=== PATIENT | female | born 1950 | race Caucasian/White ===

== ENCOUNTER 2016-07-27 16:25 | Emergency (ER) | payer OTHER ==
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
--- NOTE | 2016-07-27 19:20 | ED ORDER SUMMARY ---
..... Patient: BECK DYKES OrderSheet [facility] VisitID: [id number] [place] [address] 66y, F Registration Date/Time: 07/27/2016 ORDER SHEET Weight: 83.9 kg (stated) Allergies: Adderall XR, Augmentin, Bactroban, Concerta, Gabapentin, Lexapro, morphine, Opana, Prozac, Seroquel, Serzone GENERAL ORDERS: CBC w Diff Urgent (17:07/27/2016 Charlie Robles) (Ack 17:13 Thaddeus) (19:15 KWilliams R.N.) CMP Urgent (17:07/27/2016 Charlie Robles) (Ack 17:13 Thaddeus) (19:15 KWilliams R.N.) UA-Culture if indicated Urgent (17:07/27/2016 Charlie Robles) (Ack 17:13 Thaddeus) (19:15 KWilliams R.N.) Urine Drug Screen Urgent (17:07/27/2016 Charlie Robles) (Ack 17:13 Thaddeus) (19:15 KWilliams R.N.) Ethyl Alcohol Urgent (17:07/27/2016 Charlie Robles) (Ack 17:13 Thaddeus) (19:15 KWilliams R.N.) MEDICATION ORDERS: IV FLUIDS: ORDER SHEET NOTES: [Electronically signed by Anthony Arboleda Dr. (19:26 07/27/2016)] [Electronically signed by Lily Long (20:07 07/27/2016)] [Electronically locked/signed by Lily Long (20:07/27/2016)]
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
--- NOTE | 2016-07-27 19:20 | ED ORDER SUMMARY ---
..... Patient: BECK DYKES OrderSheet [facility] VisitID: [id number] [place] [address] 66y, F Registration Date/Time: 07/27/2016 ORDER SHEET Weight: 83.9 kg (stated) Allergies: Adderall XR, Augmentin, Bactroban, Concerta, Gabapentin, Lexapro, morphine, Opana, Prozac, Seroquel, Serzone GENERAL ORDERS: CBC w Diff Urgent (17:07/27/2016 Charlie Robles) (Ack 17:13 Thaddeus) (19:15 KWilliams R.N.) CMP Urgent (17:07/27/2016 Charlie Robles) (Ack 17:13 Thaddeus) (19:15 KWilliams R.N.) UA-Culture if indicated Urgent (17:07/27/2016 Charlie Robles) (Ack 17:13 Thaddeus) (19:15 KWilliams R.N.) Urine Drug Screen Urgent (17:07/27/2016 Charlie Robles) (Ack 17:13 Thaddeus) (19:15 KWilliams R.N.) Ethyl Alcohol Urgent (17:07/27/2016 Charlie Robles) (Ack 17:13 Thaddeus) (19:15 KWilliams R.N.) MEDICATION ORDERS: IV FLUIDS: ORDER SHEET NOTES: [Electronically signed by Anthony Arboleda Dr. (19:26 07/27/2016)] [Electronically signed by Lily Long (20:07 07/27/2016)] [Electronically locked/signed by Lily Long (20:07/27/2016)]
--- NOTE | 2016-07-27 20:07 | ED MAR SUMMARY ---
..... Medication Administration Record [facility] [address] [place] [address] Patient: BECK DYKES Visit ID: [id number] 66y, F Weight: 83.9 kg Height/Length: 67 in BMI: 29 ALLERGIES: Adderall XR, Augmentin, Bactroban, Concerta, Gabapentin, Lexapro, morphine, Opana, Prozac, Seroquel, Serzone
--- NOTE | 2016-07-27 20:07 | ED MAR SUMMARY ---
..... Medication Administration Record [facility] [address] [place] [address] Patient: BECK DYKES Visit ID: [id number] 66y, F Weight: 83.9 kg Height/Length: 67 in BMI: 29 ALLERGIES: Adderall XR, Augmentin, Bactroban, Concerta, Gabapentin, Lexapro, morphine, Opana, Prozac, Seroquel, Serzone
--- NOTE | 2016-07-27 20:07 | ED MED RECONCILIATION SUMMARY ---
Patient: BECK DYKES Medication Reconciliation Report [facility] VisitID: [id number] [address] [place] [address] 66y, F Registration Date/Time: 07/27/2016 Weight: 83.9 kg Height/Length: 67 in. BMI: 29.0 ALLERGIES: Adderall XR, Augmentin, Bactroban, Concerta, Gabapentin, Lexapro, morphine, Opana, Prozac, Seroquel, Serzone The patient's Home Medications are listed below: CONTINUE TAKING THE FOLLOWING MEDICATIONS: Albuterol Sulfate Inhalation Neurontin Oral Statin Symbicort Inhalation (80-4.5 mcg/act) 2 sprays , 2 x daily Ventolin HFA Inhalation 2 puffs ZyrTEC Allergy Oral The source(s) of the original Home Medication information: patient The following Medications were given to the patient in the Emergency Department: None. The following Medications were prescribed to the patient: None.
--- NOTE | 2016-07-27 20:07 | ED DISCHARGE INSTRUCTIONS ---
Patient: BECK DYKES General Instructions [facility] VisitID: [id number] [place] [address] 66y, F Registration Date/Time: 07/27/2016 Meniere's disease- chronic, right and left ear. INSTRUCTIONS Your Current Medications: CONTINUE TAKING THE FOLLOWING MEDICATIONS: Albuterol Sulfate Inhalation. Neurontin Oral. Statin*. Symbicort Inhalation : Aerosol 80-4.5 mcg/act, 2 sprays 2 x daily. Ventolin HFA Inhalation : 2 puffs, prn. ZyrTEC Allergy Oral. Follow-up: Follow up with your doctor in about four days. Call for an appointment. Screening today revealed the patient's blood pressure to be in the normal range. ADDITIONAL INFORMATION Meniere's Disease The "inner ear" is located inside the brain. It is the balance center of your body. Meniere's Disease is a chronic recurring condition of the inner ear causing a sense of fullness or pressure in the ear, episodes of vertigo , ringing in the ear ("tinnitus") and gradual hearing loss in one or both ears. VERTIGO is a false feeling of motion (as if you or the room is spinning). A vertigo attack may cause extreme nausea, vomiting and heavy sweating. Severe vertigo causes a loss of balance and may result in falling. During an attack of vertigo, head movement and body position changes will worsen symptoms. The vertigo spells may occur weeks, months or years apart. Each episode of vertigo may last minutes, hours or days. The symptoms are due to increased amount of fluid in the inner ear canals but the exact cause of this disease is not known. In almost half the cases another family member has the disease. So, there may be a genetic tendency. Home Care: If symptoms are severe, rest quietly in bed. Change positions slowly. There is usually one position that will feel best, such as lying on one side or lying on your back with your head slightly raised on pillows. Reduce your salt intake. Excess salt in the diet causes fluid retention and can make this condition worse. Do not drive or work with dangerous machinery for one week after symptoms disappear. Symptoms may return suddenly. Take medicine as prescribed to relieve your symptoms. Unless another medicine was prescribed for nausea, vomiting and vertigo, you may use [id number] motion sickness pills, such as meclizine (Bonine, Bonamine, Antivert and other brand names). Get Prompt Medical Attention if any of the following occur: Worsening of symptoms Fever of 100.4F (38C) or higher, or as directed by your healthcare provider Repeated vomiting not relieved by medicine prescribed Increased weakness or fainting Headache or unusual drowsiness Difficulty with speech or movement You have been given the following additional information: Meniere's Disease (Electronically signed by Anthony Arboleda Dr. 07/27/2016 19:26)
--- NOTE | 2016-07-27 20:07 | ED MED RECONCILIATION SUMMARY ---
Patient: BECK DYKES Medication Reconciliation Report [facility] VisitID: [id number] [address] [place] [address] 66y, F Registration Date/Time: 07/27/2016 Weight: 83.9 kg Height/Length: 67 in. BMI: 29.0 ALLERGIES: Adderall XR, Augmentin, Bactroban, Concerta, Gabapentin, Lexapro, morphine, Opana, Prozac, Seroquel, Serzone The patient's Home Medications are listed below: CONTINUE TAKING THE FOLLOWING MEDICATIONS: Albuterol Sulfate Inhalation Neurontin Oral Statin Symbicort Inhalation (80-4.5 mcg/act) 2 sprays , 2 x daily Ventolin HFA Inhalation 2 puffs ZyrTEC Allergy Oral The source(s) of the original Home Medication information: patient The following Medications were given to the patient in the Emergency Department: None. The following Medications were prescribed to the patient: None.
--- NOTE | 2016-07-27 20:07 | ED DISCHARGE INSTRUCTIONS ---
Patient: BECK DYKES General Instructions [facility] VisitID: [id number] [place] [address] 66y, F Registration Date/Time: 07/27/2016 Meniere's disease- chronic, right and left ear. INSTRUCTIONS Your Current Medications: CONTINUE TAKING THE FOLLOWING MEDICATIONS: Albuterol Sulfate Inhalation. Neurontin Oral. Statin*. Symbicort Inhalation : Aerosol 80-4.5 mcg/act, 2 sprays 2 x daily. Ventolin HFA Inhalation : 2 puffs, prn. ZyrTEC Allergy Oral. Follow-up: Follow up with your doctor in about four days. Call for an appointment. Screening today revealed the patient's blood pressure to be in the normal range. ADDITIONAL INFORMATION Meniere's Disease The "inner ear" is located inside the brain. It is the balance center of your body. Meniere's Disease is a chronic recurring condition of the inner ear causing a sense of fullness or pressure in the ear, episodes of vertigo , ringing in the ear ("tinnitus") and gradual hearing loss in one or both ears. VERTIGO is a false feeling of motion (as if you or the room is spinning). A vertigo attack may cause extreme nausea, vomiting and heavy sweating. Severe vertigo causes a loss of balance and may result in falling. During an attack of vertigo, head movement and body position changes will worsen symptoms. The vertigo spells may occur weeks, months or years apart. Each episode of vertigo may last minutes, hours or days. The symptoms are due to increased amount of fluid in the inner ear canals but the exact cause of this disease is not known. In almost half the cases another family member has the disease. So, there may be a genetic tendency. Home Care: If symptoms are severe, rest quietly in bed. Change positions slowly. There is usually one position that will feel best, such as lying on one side or lying on your back with your head slightly raised on pillows. Reduce your salt intake. Excess salt in the diet causes fluid retention and can make this condition worse. Do not drive or work with dangerous machinery for one week after symptoms disappear. Symptoms may return suddenly. Take medicine as prescribed to relieve your symptoms. Unless another medicine was prescribed for nausea, vomiting and vertigo, you may use [id number] motion sickness pills, such as meclizine (Bonine, Bonamine, Antivert and other brand names). Get Prompt Medical Attention if any of the following occur: Worsening of symptoms Fever of 100.4F (38C) or higher, or as directed by your healthcare provider Repeated vomiting not relieved by medicine prescribed Increased weakness or fainting Headache or unusual drowsiness Difficulty with speech or movement You have been given the following additional information: Meniere's Disease (Electronically signed by Anthony Arboleda Dr. 07/27/2016 19:26)
== END 2016-07-27 19:40 | disposition home or self-care (01) ==
LOC: ED SRH 16:25
DX: H81.03 Meniere's disease, bilateral (principal); G89.29 Other chronic pain; J44.9 Chronic obstructive pulmonary disease, unspecified; I10 Essential (primary) hypertension; Z79.899 Other long term (current) drug therapy; F17.210 Nicotine dependence, cigarettes, uncomplicated; K21.9 Gastro-esophageal reflux disease without esophagitis
CPT/HCPCS: 90004; 90074; 90100; 92010; 92760; 92761; 92762; 92763; 92764; 92765; 92766; 92767; 95059